=== PATIENT | female | born 1980 | race Caucasian/White ===

== ENCOUNTER 2019-12-31 10:02 | Emergency (ER) | payer MEDICARE ==
[~2019-12-31] VITALS: Ht 162.6 cm; Wt 61.2 kg
[2019-12-31 10:40] LABS: BASOPHILS % 0.5 % (0.0-1.0); EOSINOPHILS # (AUTO) 0.1 (0.0-0.4); EOSINOPHILS % 1.2 % (0.0-6.0); HEMATOCRIT 34.6 % (34.2-44.1); HEMOGLOBIN 10.8 g/dL (12.0-16.0); LYMPHOCYTES # (AUTO) 1.9 (1.0-3.2); LYMPHOCYTES % 31.3 % (18.0-39.1); MEAN CORPUSCULAR HEMOGLOBIN 24.7 pg (28-32); MEAN CORPUSCULAR HGB CONC 31.2 g/dL (31-35); MEAN CORPUSCULAR VOLUME 79.2 fL (81-99); MONOCYTES # (AUTO) 0.7 (0.2-0.8); MONOCYTES % 11.1 % (4.4-11.3); NEUTROPHILS # (AUTO) 3.4 (2.1-6.9); NEUTROPHILS % 55.7 % (38.7-80.0); PLATELET COUNT 278 x10e3/uL (140-360); RED BLOOD COUNT 4.37 x10e6/uL (3.6-5.1); RED CELL DISTRIBUTION WIDTH 16.8 % (11.7-14.4)
--- NOTE | 2019-12-31 10:56 | Emergency Department Note ---
History of Present Illnes History of Present Illness Chief Complaint: Genitourinary History of Present Illness This is a 39 year old female had 1 bloody BM BRBPR, no melena and LAP, LLQ x 1 day. LMP early in the month. . Historian: Patient Arrival Mode: Car Onset (how long ago): day(s) (1) Location: lower GI Quality: ache Radiation: Reports non-radiation Severity: moderate Onset quality: gradual Duration (how long): day(s) (1) Timing of current episode: constant Progression: worsening Chronicity: new Context: Denies recent illness, Denies recent surgery, Denies recent immobilization Relieving factors: none Exacerbating factors: none Past Medical/Family History Physician Review I have reviewed the patient's past medical and family history. Any updates have been documented here. Past Medical History Recent Fever: No Clinical Suspicion of Infectio: No New/Unexplained Change in Ment: No Past Medical History: None Past Surgical History: None Other Any Pre-Existing Lines (PICC,: No Review of Systems Review of Systems Constitutional: Reports no symptoms EENTM: Reports no symptoms Cardiovascular: Reports no symptoms Respiratory: Reports no symptoms Gastrointestinal: Reports as per HPI Genitourinary: Reports no symptoms Musculoskeletal: Reports no symptoms Integumentary: Reports no symptoms Neurological: Reports no symptoms Psychological: Reports no symptoms Endocrine: Reports no symptoms Hematological/Lymphatic: Reports no symptoms Physical Exam Related Data Allergies: Uncoded Allergies: ANTS (Allergy, Unknown, 12/31/19) CALAMARI (Allergy, Unknown, 12/31/19) Triage Vital Signs Vital Signs Date Time Temp Pulse Resp B/P (MAP) Pulse Ox O2 Delivery O2 Flow Rate FiO2 12/31/19 10:20 98.0 70 18 126/75 100 Room Air Physical Exam CONSTITUTIONAL Constitutional: Present well-developed, Present well-nourished HENT HENT: Present normocephalic, Present atraumatic, Present oropharynx clear/moist, Present nose normal HENT L/R: Present left ext ear normal, Present right ext ear normal EYES Eyes: Reports PERRL, Reports conjunctivae normal NECK Neck: Present ROM normal PULMONARY Pulmonary: Present effort normal, Present breath sounds normal CARDIOVASCULAR Cardiovascular: Present regular rhythm, Present heart sounds normal, Present capillary refill normal, Present normal rate GASTROINTESTINAL Abdominal: Present soft, Present bowel sounds normal, Present tender (TTP LLQ, no peritoneal signs ) GENITOURINARY Genitourinary: Present exam deferred SKIN Skin: Present warm, Present dry MUSCULOSKELETAL Musculoskeletal: Present ROM normal NEUROLOGICAL Neurological: Present alert, Present oriented x 3, Present no gross motor or sensory deficits PSYCHOLOGICAL Psychological: Present mood/affect normal, Present judgement normal Results Laboratory Result Diagram: 12/31/19 1018 Laboratory Laboratory Tests Test 12/31/19 10:37 12/31/19 10:18 Urine Test Negative (NEGATIVE) White Blood Count 6.01 x10e3/uL (4.8-10.8) Red Blood Count 4.37 x10e6/uL (3.6-5.1) Hemoglobin 10.8 g/dL (12.0-16.0) Hematocrit 34.6 % (34.2-44.1) Mean Corpuscular Volume 79.2 fL (81-99) Mean Corpuscular Hemoglobin 24.7 pg (28-32) Mean Corpuscular Hemoglobin Concent 31.2 g/dL (31-35) Red Cell Distribution Width 16.8 % (11.7-14.4) Platelet Count 278 x10e3/uL (140-360) Neutrophils (%) (Auto) 55.7 % (38.7-80.0) Lymphocytes (%) (Auto) 31.3 % (18.0-39.1) Monocytes (%) (Auto) 11.1 % (4.4-11.3) Eosinophils (%) (Auto) 1.2 % (0.0-6.0) Basophils (%) (Auto) 0.5 % (0.0-1.0) Neutrophils # (Auto) 3.4 (2.1-6.9) Lymphocytes # (Auto) 1.9 (1.0-3.2) Monocytes # (Auto) 0.7 (0.2-0.8) Eosinophils # (Auto) 0.1 (0.0-0.4) Basophils # (Auto) 0.0 (0.0-0.1) Absolute Immature Granulocyte (auto 0.01 x10e3/uL (0-0.1) Assessment & Plan Medical Decision Making MDM Patient's a 39-year-old female that had 1 bloody bowel movement. Patient on exam with left lower quadrant pain, we'll CT to rule out diverticulitis. Patient likely with hemorrhoidal bleed, will do a rectal exam. We will also check H&H. Reassessment Reassessment Patient in no acute distress, rectal exam chaperoned by needed when necessary shows brown stool, positive external hemorrhoid. It Is benign, well advised to use fiber, MiraLAX, follow up with GI. CT did not show colitis, bleed likely hemorrhoidal. Follow up with GI. Utilizing all results explained. Nodule to small to characterize on her liver, understands to follow up PCP. Assessment & Plan Final Impression: (1) BRBPR (bright red blood per rectum) Depart Disposition: HOME, SELF-CARE Last Vital Signs Date Time Temp Pulse Resp B/P (MAP) Pulse Ox O2 Delivery O2 Flow Rate FiO2 12/31/19 10:30 20 135/86 98 Room Air 12/31/19 10:20 98.0 70 MARJ PEREZ MD Dec 31, 2019 10:56
[2019-12-31 11:08] LABS: ALANINE AMINOTRANSFERASE 10 IU/L (0-55); ALBUMIN 4.2 g/dL (3.5-5.0); ALBUMIN/GLOBULIN RATIO 1.6 (0.8-2.0); ALKALINE PHOSPHATASE 38 IU/L (40-150); ANION GAP 15.9 mmol/L (8-16); BLOOD UREA NITROGEN 18 mg/dL (7-26); BUN/CREATININE RATIO 23 (6-25); CALCIUM 9.1 mg/dL (8.4-10.2); CARBON DIOXIDE 22 mmol/L (22-29); CHLORIDE 104 mmol/L (98-107); CREATININE, SERUM 0.79 mg/dL (0.57-1.11); EST GLOMERULAR FILTRATION RATE > 60 ML/MIN (60-); GLUCOSE 107 mg/dL (74-118); POTASSIUM 3.9 mmol/L (3.5-5.1); SODIUM 138 mmol/L (136-145)
[2019-12-31] MEDS ORDERED: IOPAMIDOL 370 MG/ML 200 ML INFUS..BTL INJ ONE (11:37)
[2019-12-31] MEDS ORDERED: SODIUM CHLORIDE 0.9% 50ML 50 ML ONE (11:37)
--- NOTE | 2019-12-31 11:47 | NUR ---
CT made aware that patient is ready
--- NOTE | 2019-12-31 13:07 | Diagnostic Imaging Report ---
CT of the abdomen and pelvis, with contrast, 12/31/2019. History: Left lower quadrant pain. Comparison: None available. Technique: Multidetector CT scanning of the abdomen and pelvis was performed from the level of the lung bases to the inferior pubic rami after intravenous administration of contrast. Coronal and sagittal multiplanar reformations were obtained. RADIATION DOSE: Total DLP: 277 mGy*cm Dose modulation, iterative reconstruction, and/or weight based adjustment of the mA/kV was utilized to reduce the radiation dose to as low as reasonably achievable. Discussion: LUNG BASES: No visualized abnormalities. ABDOMEN: A 5 mm hypodensity is noted within the right lobe of the liver. The liver measures 17.4 cm in length. The gallbladder, biliary tree, spleen, pancreas, adrenal glands, and kidneys are otherwise normal. The hepatic vein, portal vein, and splenic vein are patent. The abdominal aorta is within normal limits for size. Evaluation of bowel is limited without oral contrast. There is no bowel dilatation. There is no evidence of adenopathy or free fluid. PELVIS: The bladder, uterus, and adnexa are normal in appearance. There is no evidence of free fluid or adenopathy. BONES AND SOFT TISSUES: Degenerative changes are present throughout the lumbar spine without evidence of lytic or sclerotic lesion. IMPRESSION: Mild hepatomegaly with a subcentimeter right hepatic hypodensity which is too small to characterize. Otherwise unremarkable CT of the abdomen and pelvis. Signed by: Vic Clark on 12/31/2019 1:04 PM
[2019-12-31 14:02] VITALS: BP 125/72
--- OUTSIDE RECORDS SUMMARY | 2020-01-06 18:00 | XMS REPORT | Clinical Summary ---
Author Author [facility] ict Organization [facility] ict Address Unknown Phone Unavailable Care Team Providers Care Commercial Real Estate Attorney Name Role Phone PCP Unavailable Allergies Comments Active Allergy Reactions Severity Noted Date Psychosis Gabapentin 12/31/2013 Medications End Date Status Medication Sig Dispensed Refills Start Date Active sertraline (ZOLOFT) 100 Take 100 mg 0 mg tablet by mouth daily. Active amitriptyline (ELAVIL) 25 Take 1 tablet 30 tablet 2 mg tabletIndications: by mouth at 4 Neck pain, chronic bedtime nightly. Active ibuprofen (MOTRIN) 800 mg Take 1 tablet 90 tablet 2 tabletIndications: Neck by mouth 4 pain, chronic every 8 hours as needed for Pain. Active nicotine polacrilex Place 1 Each 30 Each 2 01/14 (NICORETTE) 2 mg inside cheek 4 GumIndications: Bipolar 1 every 2 disorder hours. Active ARIPiprazole (ABILIFY) 10 Take 0.5 60 tablet 1 mg tabletIndications: tablet po q 4 Posttraumatic stress am and q hs disorder for 1 week, increase to 0.5 tablet po q am and 1 tablet po q hs starting 2 week and thereafter. Active hydrOXYzine (ATARAX) 50 Take 1 tablet 90 tablet 2 mg tabletIndications: po tid. 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 conditions classified elsewhere Active Problems Problem Noted Date Rectal bleeding Immunizations Name Administration Dates Next Due PPV 23 Pneumococcal 06/21/2014 Polysaccaride Family History Medical History Relation Name Comments Seizures Brother Heart Father Arthritis Mother Hypertension Mother Stroke Paternal Grandmother Relation Name Status Comments Brother Alive 3 Brother Father Maternal Grandfather Maternal Grandmother Alive Mother Alive Paternal Grandfather Paternal Grandmother Sister Alive Social History Date Tobacco Use Types Packs/Day Years Used Current Every Day Smoker Cigarettes Smokeless Tobacco: Never Used Tobacco Cessation: Ready to Quit: Yes; C ounseling Given: Yes Drinks/Week oz/Week Comments Alcohol Use No Sex Assigned at Date Recorded Not on file Industry Job Start Date Occupation Not on file Not on file Not on file Travel End Travel History Travel Start No recent travel history available. Last Filed Vital Signs Not on file Plan of Treatment Health Maintenance Due Date Last Done Comments Pap Cervical Cancer Scrn 2011 HPV Cervical Cancer Scrn 06/22/2019 06/21/2014, 06/21/2014 Results Not on fileafter 12/30/2018 Insurance Type Payer Benefit Subscriber ID Effective Phone Address Plan / Dates Group [facility] SELF-PAY SELF-PAY xxxxxxxxx 2018- [phone] [id number] [place] [address]
--- OUTSIDE RECORDS SUMMARY | 2020-01-06 18:00 | XMS REPORT | Clinical Summary ---
Author Author [facility] Organization [facility] Address Unknown Phone Unavailable Care Team Providers Care Credit Risk Review Officer Name Role Phone Asked, No Pcp PCP Unavailable Allergies No Known Active Allergies Medications End Date Status Medication Sig Dispensed Refills Start Date Active meloxicam (MOBIC) 15 mg Take 1 tablet 10 tablet 0 tablet (15 mg total) 8 by mouth daily as needed for mild pain for up to 10 doses. Active Problems Not on file Surgical History Surgery Date Site/Laterality Comments CERVICAL BIOPSY Medical History Medical History Date Comments Anemia Mini stroke (HCC) age 28 Social History Date Tobacco Use Types Packs/Day Years Used Current Every Day Smoker Cigarettes 1 Smokeless Tobacco: Never Used Tobacco Cessation: Ready to Quit: No; Co unseling Given: Yes Drinks/Week oz/Week Comments Alcohol Use not at the moment Yes Sex Assigned at Date Recorded Not on file Last Filed Vital Signs Not on file Plan of Treatment Health Maintenance Due Date Last Done Comments CERVICAL CANCER SCREENING 2002 INFLUENZA VACCINE 10/02/2019 Results Not on fileafter 12/30/2018 Insurance Type Payer Benefit Subscriber ID Effective Phone Address Plan / Dates Group Medicaid MEDICAID MEDICAID [id number] 2018-Carlos Alberto jensen Advance Directives For more information, please contact: [phone] Patient Tripoler Explanation Type Date Recorded Advance Directives, 09/17/2017 11:50 AM Living Will and Medical Power of Buffet Runner
--- OUTSIDE RECORDS SUMMARY | 2020-01-06 18:01 | XMS REPORT | Continuity of Care Document ---
Author Author [facility] t Organization [facility] Address [address] [place] [address] Phone Unavailable Care Team Providers Care Display Card Writer Name Role Phone Asked, Pcp No PCP Unavailable Gladis PEREZ Attphys Unavailable Jazmin Livingston CNM Attphys Radiology Attphys Unavailable Doctor Unassigned, Name No Attphys Unavailable Payers Payer Name Policy Type Policy Number Effective Date Expiration Date S ource Problems Condition Name Condition Details Condition Category Status Onset Date Resolution Date Last Treatment Date Treating Clinician Comments Source Disease Active [facility] Rectal bleeding Rectal bleeding Disease Active [facility] Allergies, Adverse Reactions, Alerts Allergy Name Allergy Type Status Severity Reaction(s) Onset Date Inacti ve Date Treating Clinician Comments Source No Known Allergies DA Active U 2018-09-02 00:00:00 [facility] miconazole nitrate DA Active [place] 2018-07-01 00:00:00 [facility] latex DA Active [place] 2018-07-01 00:00:00 [facility] Gabapentin Propensity to adverse reactions to drug Active 2013-12-31 00:00:00 Psychosis [facility] miconazole nitrate DA Active MO 2011-07-04 00:00:00 [facility] latex DA Active MO 2011-07-04 00:00:00 [facility] Family History Family Member Diagnosis Comments Start Date Stop Date Source Natural brother Seizures [facility] Natural father Heart [facility] Natural mother Arthritis [facility] Natural mother Hypertension [facility] Paternal grandmother Stroke [facility] Social History Social Habit Start Date Stop Date Quantity Comments Source History of tobacco use Cigarette Smoker [facility] Sex Assigned At [facility] Cigarettes smoked current (pack per day) - Reported 00:00:00 2018-05-20 00:00:00 Pablo Benson Tobacco use and exposure 2018-05-20 00:00:00 2018-05-20 00:00:00 Katherine blanchard used [facility] Alcohol Comment 2018-05-20 00:00:00 2018-05-20 00:00:00 not at the mo ment [facility] Alcohol intake 2018-04-21 00:00:00 2018-04-21 00:00:00 Current non-drinker of alcohol (finding) [facility] Smoking Status Start Date Stop Date Source Current every day smoker 2018-04-21 00:00:00 [facility] Medications Ordered Medication Name Filled Medication Name Start Date Stop Da te Current Medication? Ordering Clinician Indication Dosage Frequency Signature (SIG) Comments Components Source meloxicam (MOBIC) 15 mg tablet 2017-10-28 00:00:00 Yes 15mg Q24H Take 1 tablet (15 mg total) by mouth daily as needed for mild pain for up to [address] [facility] sertral[facility] (ZOLOFT) 100 mg tablet 2014 15:46:07 Yes 100mg QD Take 100 mg by mouth daily. [facility] hydrOXYzine (ATARAX) 50 mg tablet 2014 00:00:00 Yes Mood disorder in conditions classified elsewhere Take 1 tablet po tid. [facility] ARIPiprazole (ABILIFY) 10 mg tablet 2014 00:00:00 Yes Mood disorder in conditions classified elsewhere 15mg QD Take 1.5 tablets by italo th daily. [facility] ARIPiprazole (ABILIFY) 10 mg tablet 2014-02-10 00:00:00 Yes Posttraumatic stress disorder Take 0.5 tablet po q am and q hs for 1 week, increase to 0.5 tablet po q am and 1 tablet po q hs starting 2 week and thereafter. [facility] nicotine polacrilex (NICORETTE) 2 mg Gum 2014-01-14 00:00:00 Yes Bipolar [address] 1 Each inside cheek every 2 hours. [facility] amitriptyline (ELAVIL) 25 mg tablet 2013-12-31 00:00:00 Yes Neck pain, chronic 25mg Take 1 tablet by mouth at bedtime nightly. [facility] ibuprofen (MOTRIN) 800 mg tablet 2013-12-31 00:00:00 Yes Neck pain, chronic 800mg Take 1 tablet by mouth every 8 hours as needed for Pain. [facility] Immunizations Ordered Immunization Name Filled Immunization Name Date Status Comments Source PPV 23 Pneumococcal Polysaccaride 2014-06-21 00:00:00 Comp leted [facility] Procedures This patient has no known procedures. Plan of Care Planned Activity Planned Date Details Comments Source Future Scheduled Test 2019-10-02 00:00:00 INFLUENZA VACCINE [code = INFLUENZA VACCINE] [facility] Scheduled Test 2019-06-22 00:00:00 Screening for clara gnant neoplasm of cervix (procedure) [code = 882263455] [facility] Scheduled Test 2011 00:00:00 Screening for clara gnant neoplasm of cervix (procedure) [code = 393017916] [facility] Scheduled Test 2002 00:00:00 Screening for clara gnant neoplasm of cervix (procedure) [code = 260945459] Otis Joseis Encounters Start Date/Time End Date/Time Encounter Type Admission Type Attendi [facility] Care Department Encounter ID Source 2019-12-22 00:00:00 2019-12-22 00:00:00 Telephone Jazmin Livingston [facility] [place] [id number] 2019-12-20 08:38:40 2019-12-20 23:59:00 Hospital Encounter Radiology [facility] [id number] 2019-12-20 08:37:37 2019-12-20 08:37:37 Hospital Encounter Radiology [facility] [place] [id number] 2019-11-24 09:59:40 2019-11-24 11:02:52 Office Visit Miki AnaisJazmin [facility] [id number] 2019-11-24 00:00:00 2019-11-24 00:00:00 Orders Only D danior Unassigned, [place] [facility] [id number] 2018-04-21 08:34:24 2018-04-21 08:34:24 Emergency [facility] [id number] [facility] 2018-04-21 02:59:22 2018-04-21 02:59:22 Emergency [facility] [id number] [facility] Results Test Description Test Time Test Comments Results Result Comments Source CT ABDOMEN/PELVIS W 2019-12-31 12:57:00 [facility] : 1980 Sex: F [place] [id number] Patient Name: ANNA MITCHELL MR #: [id number] : 1980 Age/Sex: 39/F Req #: [id number] Adm Physician: Ordered by: MARJ PEREZ MD Report #: [id number] Location: Room/Bed: Procedure: [id number] CT/CT ABDOMEN/PELVIS W Exam Date: 12/31/19 Exam Time: 1220 REPORT STATUS: Signed CT of the abdomen and pelvis, with contrast, 12/31/2019. History: Left lower quadrant pain. Comparison: None available. Technique: Multidetector CT scanning of the abdomen and pelvis was performed from the level of the lung bases to the inferior pubic rami after intravenous administration of contrast. Coronal and sagittal multiplanar reformations were obtained. RADIATION DOSE: Total DLP: 277 mGy*cm Dose modulation, iterative reconstruction, and/or weight based adjustment of the mA/kV was utilized to reduce the radiation dose to as low as reasonably achievable. Discussion: LUNG BASES: No visualized abnormalities. ABDOMEN: A 5 mm hypodensity is noted within the right lobe of the liver. The liver measures 17.4 cm in length. The gallbladder, biliary tree, spleen, pancreas, adrenal glands, and kidneys are otherwise normal. The hepatic vein, portal vein, and splenic vein are patent. The abdominal aorta is within normal limits for size. Evaluation of bowel is limited without oral contrast. There is no bowel dilatation. There is no evidence of adenopathy or free fluid. PELVIS: The bladder, uterus, and adnexa are normal in appearance. There is no evidence of free fluid or adenopathy. BONES AND SOFT TISSUES: Degenerative changes are present throughout the lumbar spine without evidence of lytic or sclerotic lesion. IMPRESSION: Mild hepatomegaly with a subcentimeter right hepatic hypodensity which is too small to characterize. Otherwise unremarkable CT of the abdomen and pelvis. Signed by: Vic Clark on 12/31/2019 1:04 PM Dictated By: VIC CLARK MD [id number] Transcribed By: JAXSON on 12/31/19 0322 COPY TO: MARJ PEREZ MD - XR HIP W/PEL UNI 2+V LT 2019-12-31 10:10:00 [facility] 1980 Sex: F FAX: Aurora Crook MD [phone] [place]: St: REG -- Name: ANNA MITCHELL [facility] : 1980 Age/S: 39/F [address] [place] [address] Unit #: [id number] Loc: [place] [address] Phys: Aurora Cha MD Acct: [id number] Dis Date: Status: REG CLI PHONE #: [phone] Exam Date: 12/31/2019 0900 FAX #: [phone] Reason: L HIP PAIN EXAMS: CPT CODE: [id number] XR HIP W/PEL UNI 2+[place] [address] Left hip 2 views: HISTORY: Left hip pain. FINDINGS: Normal bony alignment without fracture, dislocation or lytic lesion. Joint spaces maintained. IMPRESSION: Negative SL: [id number] at 1010 Reported and signed by: Vin Valdez M.D. CC: Aurora Cha Technologist: RT Ariel(R) Trnscrd Date/Time/By: 12/31/2019 (1010) : By: RemingtonETG Orig Print D/T: S: 12/31/2019 (1014) PAGE 1 Signed Report - [facility] UNI/LTD 2018-07-01 14:14:00 Name: Earnestine SULLIVANANNA [facility] : 1980 Age/S: 38 / F [address] [place] [address] Unit #: [id number] Loc: [place] [address] Phys: Gladys Tang MD Acct: [id number] Dis Date: Status: REG ER PHONE #: [phone] Exam Date: 07/01/2018 1354 FAX #: [phone] Reason: acute LUE pain EXAMS: CPT CODE: [id number] [facility] UNI/LTD 75499 Left upper extremity Doppler US performed on July 01, 2018 1320 hours. CLINICAL HISTORY: Arm pain. COMPARISON: None. DISCUSSION: Real-time caceres scale sonography, color Doppler and spectral waveform analysis was performed of the deep venous structures of the left upper extremity, including the jugular vein, subclavian vein, axillary vein, brachial vein, cephalic vein, basilic vein, radial vein and ulnar vein.. There is normal flow and compressibility through out, with normal response to respiration and augmentation. IMPRESSION: 1. No sonographic evidence of deep venous thrombosis left upper extremity. at 1414 Reported and signed by: Deborah Ivy M.D. CC: Gladys Tang MD Technologist: Patsy [place] RDMS(OB)(AB) Trnscb Date/Time: 07/01/2018 (1414) [email or web address] Orig Print D/T: S: 07/01/2018 (0517) Probe: PAGE 1 Signed Report - US PREG 1ST TRIMTR 2018-07-01 14:05:00 Name: ANNA MITCHELL [facility] : 1980 Age/S: 38 / F [address] [place] [address] Unit #: [id number] Loc: [place] [address] Phys: Gladys Tang MD Acct: [id number] Dis Date: Status: REG ER PHONE #: [phone] Exam Date: 07/01/2018 1354 FAX #: [phone] Reason: acute pelvic pain EXAMS: CPT CODE: [id number] US PREG 1ST TRIMTR 99573 PROCEDURE: FIRST TRIMESTER ULTRASOUND INDICATION: Acute pelvic pain. LMP 03/31/2018. EGA 13 weeks 1 day. COMPARISON: None relevant TECHNIQUE: Grayscale, color and Doppler transabdominal imaging of the pelvis was performed with standard technique. FINDINGS: UTERUS: The uterus measures approximately 12.9 x 9.6 x 11.3 cm. Single living intrauterine . Garnet-rump length average 8.3 cm. heart rate 155. No abnormal fluid collection. The cervix is grossly closed. RIGHT OVARY: 2.5 x 1.6 x 2.3 cm. Normal morphology. Internal flow documented. LEFT OVARY: 3.7 x 1.8 x 3.2 cm. Normal morphology. Internal flow documented. BLADDER: Contracted, otherwise unremarkable. Comments: No adnexal masses. No free intraperitoneal fluid. IMPRESSION: 1. Single living intrauterine at an estimated gestational age of 14 weeks 1 day by crown-rump length, within measurement error of EGA by dates. 2. No acute abnormality demonstrated to account for the patient's symptoms. SL: [id number] at 1405 Reported and signed by: Greg Anna M.D. CC: Gladys Tang MD Technologist: Patsy [place] RDMS(OB)(AB) Trnscb Date/Time: 07/01/2018 (1405) Analy Orig Print D/T: S: 07/01/2018 (9442) Probe: PAGE 1 Signed Report - [facility] UNI/LTD 2018-07-01 13:58:00 Name: ANNA AQUINO [facility] : 1980 Age/S: 38 / F [address] [place] [address] Bl Unit #: [id number] Loc: [place] [address] Phys: Gladys Tang MD Acct: [id number] Dis Date: Status: REG ER PHONE #: [phone] Exam Date: 07/01/2018 1354 FAX #: [phone] Reason: acute LLE pain EXAMS: CPT CODE: [id number] [facility] UNI/LTD 54893 PROCEDURE: LEFT UNILATERAL LOWER EXTREMITY VENOUS ULTRASOUND INDICATION: Acute left leg pain. COMPARISON: None. TECHNIQUE: Sonographic evaluation of the left lower extremity veins was performed using high resolution B-mode, pulse and color Doppler imaging. FINDINGS: The common femoral, femoral, popliteal and visualized calf veins are patent. Normal venous waveforms. The saphenofemoral junction is unremarkable. IMPRESSION: 1. No deep venous thrombosis in the left leg. SL:01 at 1358 Reported and signed by: Ayo Floyd M.D. CC: Gladys Tang MD Technologist: Patsy [place] RDMS(OB)(AB) Trnscb Date/Time: 07/01/2018 (9395) t.AJJ Orig Print D/T: S: 07/01/2018 (1402) Probe: PAGE 1 Signed Report CBC W/AUTO DIFF 2018-07-01 13:30:00 Test Item WHITE BLOOD CELL (test code = WBC) 7.35 x10 3/uL 4.5-11.0 N RED BLOOD CELL (test code = RBC) 3.83 x10 6/uL 3.54-5.02 N HEMOGLOBIN (test code = HGB) 8.6 g/dL 11.0-15.0 L HEMATOCRIT (test code = HCT) 28.3 % 33.0-45.0 L MEAN CELL VOLUME (test code = MCV) 73.9 fL 81.0-99.0 L MEAN CELL HGB (test code = MCH) 22.5 pg 27.0-33.0 L MEAN CELL HGB CONCETRATION (test code = MCHC) 30.4 g/dL 33.0-37. 0 L RED CELL DISTRIBUTION WIDTH CV (test code = RDW) 20.7 % 11.5- 14.5 H RED CELL DISTRIBUTION WIDTH SD (test code = RDW-SD) 54.1 fL 37 .0-54.0 H PLATELET COUNT (test code = PLT) 273 x10 3/uL 150-400 N MEAN PLATELET VOLUME (test code = MPV) 10.2 fL 7.0-9.0 H NEUTROPHIL % (test code = NT%) 70.2 % 56.0-77.0 N IMMATURE GRANULOCYTE % (test code = IG%) 0.3 % 0.0-2.0 N LYMPHOCYTE % (test code = LY%) 19.3 % 14.0-32.0 N MONOCYTE % (test code = MO%) 8.6 % 4.8-9.0 N EOSINOPHIL % (test code = EO%) 1.2 % 0.3-3.7 N BASOPHIL % (test code = BA%) 0.4 % 0.0-2.0 N NUCLEATED RBC % (test code = NRBC%) 0.0 % 0-0 N NEUTROPHIL # (test code = NT#) 5.16 x10 3/uL 2.0-7.6 N IMMATURE GRANULOCYTE # (test code = IG#) 0.02 x10 3/uL 0.00-0.03 N LYMPHOCYTE # (test code = LY#) 1.42 x10 3/uL 1.0-3.8 N MONOCYTE # (test code = MO#) 0.63 x10 3/uL 0.1-0.8 N EOSINOPHIL # (test code = EO#) 0.09 x10 3/uL 0.0-0.2 N BASOPHIL # (test code = BA#) 0.03 x10 3/uL 0.0-0.2 N NUCLEATED RBC # (test code = NRBC#) 0.00 x10 3/uL 0.0-0.1 N MANUAL DIFF REQUIRED (test code = MDIFF) NO RBC [id number] 13:30:00* Test Item Value Reference Range Interpretation Comments POLYCHROMASIA (test code = POLC) SLIGHT POIKILOCYTOSIS (test code = POIK) 1+ ANISOCYTOSIS (test code = ANISO) 2+ MICROCYTOSIS (test code = MICR) 1+ ELLIPTOCYTES (test code = ELL) FEW SCHISTOCYTES (test code = BHASKAR) RARE HCG [id number] 12:49:00* Test Item Value Reference Range Interpretation Comments HCG SERUM (test code = HCG) 11818 0 - 6 NOT > 6 SUGGESTIVE OF EARLY RISES TWO FOLD EVERY 2 DAYS; SUGGEST RE CONFIRMING AFTER 2 DAYS. 150,000-200,[address] TRIMESTER 10,000 - 50,000 2ND & 3RD TRIMESTERResults in leonela-International Units/mL Is patient ? YHOW MANY WEEKS? 3 WEEKSCBC W/AUTO [id number] 12:28:00 * Test Item Value Reference Range Interpretation Comments WHITE BLOOD CELL (test code = WBC) 7.35 x10 3/uL 4.5-11.0 N RED BLOOD CELL (test code = RBC) 3.83 x10 6/uL 3.54-5.02 N HEMOGLOBIN (test code = HGB) 8.6 g/dL 11.0-15.0 L HEMATOCRIT (test code = HCT) 28.3 % 33.0-45.0 L MEAN CELL VOLUME (test code = MCV) 73.9 fL 81.0-99.0 L MEAN CELL HGB (test code = MCH) 22.5 pg 27.0-33.0 L MEAN CELL HGB CONCETRATION (test code = MCHC) 30.4 g/dL 33.0-37. 0 L RED CELL DISTRIBUTION WIDTH CV (test code = RDW) 20.7 % 11.5- 14.5 H RED CELL DISTRIBUTION WIDTH SD (test code = RDW-SD) 54.1 fL 37 .0-54.0 H PLATELET COUNT (test code = PLT) 273 x10 3/uL 150-400 N MEAN PLATELET VOLUME (test code = MPV) 10.2 fL 7.0-9.0 H NEUTROPHIL % (test code = NT%) 70.2 % 56.0-77.0 N IMMATURE GRANULOCYTE % (test code = IG%) 0.3 % 0.0-2.0 N LYMPHOCYTE % (test code = LY%) 19.3 % 14.0-32.0 N MONOCYTE % (test code = MO%) 8.6 % 4.8-9.0 N EOSINOPHIL % (test code = EO%) 1.2 % 0.3-3.7 N BASOPHIL % (test code = BA%) 0.4 % 0.0-2.0 N NUCLEATED RBC % (test code = NRBC%) 0.0 % 0-0 N NEUTROPHIL # (test code = NT#) 5.16 x10 3/uL 2.0-7.6 N IMMATURE GRANULOCYTE # (test code = IG#) 0.02 x10 3/uL 0.00-0.03 N LYMPHOCYTE # (test code = LY#) 1.42 x10 3/uL 1.0-3.8 N MONOCYTE # (test code = MO#) 0.63 x10 3/uL 0.1-0.8 N EOSINOPHIL # (test code = EO#) 0.09 x10 3/uL 0.0-0.2 N BASOPHIL # (test code = BA#) 0.03 x10 3/uL 0.0-0.2 N NUCLEATED RBC # (test code = NRBC#) 0.00 x10 3/uL 0.0-0.1 N MANUAL DIFF REQUIRED (test code = MDIFF) NO RBC [id number] 12:28:00* Test Item Value Reference Range Interpretation Comments ANISOCYTOSIS (test code = ANISO) CBC W/AUTO [id number] 12:28:00* Test Item Value Reference Range Interpretation Comments WHITE BLOOD CELL (test code = WBC) 7.35 x10 3/uL 4.5-11.0 N RED BLOOD CELL (test code = RBC) 3.83 x10 6/uL 3.54-5.02 N HEMOGLOBIN (test code = HGB) 8.6 g/dL 11.0-15.0 L HEMATOCRIT (test code = HCT) 28.3 % 33.0-45.0 L MEAN CELL VOLUME (test code = MCV) 73.9 fL 81.0-99.0 L MEAN CELL HGB (test code = MCH) 22.5 pg 27.0-33.0 L MEAN CELL HGB CONCETRATION (test code = MCHC) 30.4 g/dL 33.0-37. 0 L RED CELL DISTRIBUTION WIDTH CV (test code = RDW) 20.7 % 11.5- 14.5 H RED CELL DISTRIBUTION WIDTH SD (test code = RDW-SD) 54.1 fL 37 .0-54.0 H PLATELET COUNT (test code = PLT) 273 x10 3/uL 150-400 N MEAN PLATELET VOLUME (test code = MPV) 10.2 fL 7.0-9.0 H NEUTROPHIL % (test code = NT%) 70.2 % 56.0-77.0 N IMMATURE GRANULOCYTE % (test code = IG%) 0.3 % 0.0-2.0 N LYMPHOCYTE % (test code = LY%) 19.3 % 14.0-32.0 N MONOCYTE % (test code = MO%) 8.6 % 4.8-9.0 N EOSINOPHIL % (test code = EO%) 1.2 % 0.3-3.7 N BASOPHIL % (test code = BA%) 0.4 % 0.0-2.0 N NUCLEATED RBC % (test code = NRBC%) 0.0 % 0-0 N NEUTROPHIL # (test code = NT#) 5.16 x10 3/uL 2.0-7.6 N IMMATURE GRANULOCYTE # (test code = IG#) 0.02 x10 3/uL 0.00-0.03 N LYMPHOCYTE # (test code = LY#) 1.42 x10 3/uL 1.0-3.8 N MONOCYTE # (test code = MO#) 0.63 x10 3/uL 0.1-0.8 N EOSINOPHIL # (test code = EO#) 0.09 x10 3/uL 0.0-0.2 N BASOPHIL # (test code = BA#) 0.03 x10 3/uL 0.0-0.2 N NUCLEATED RBC # (test code = NRBC#) 0.00 x10 3/uL 0.0-0.1 N MANUAL DIFF REQUIRED (test code = MDIFF) NO RBC [id number] 12:28:00* Test Item Value Reference Range Interpretation Comments ANISOCYTOSIS (test code = ANISO)
== END 2019-12-31 13:55 | disposition home or self-care (01) ==
LOC: ER 12:15
DX: R10.32 Left lower quadrant pain (principal); K62.5 Hemorrhage of anus and rectum
CPT/HCPCS: 36415; 74177; 80053; 81025; 85025; 99284; Q9967

== ENCOUNTER 2020-04-30 16:53 | Emergency (ER) | payer SELFPAY ==
[~2020-04-30] VITALS: Ht 162.6 cm; Wt 61.2 kg
[2020-04-30 17:38] LABS: BASOPHILS # (AUTO) 0.1 (0.0-0.1); BASOPHILS % 0.8 % (0.0-1.0); EOSINOPHILS # (AUTO) 0.1 (0.0-0.4); EOSINOPHILS % 1.4 % (0.0-6.0); HEMOGLOBIN 12.6 g/dL (12.0-16.0); LYMPHOCYTES # (AUTO) 2.7 (1.0-3.2); LYMPHOCYTES % 34.7 % (18.0-39.1); MEAN CORPUSCULAR HEMOGLOBIN 29.5 pg (28-32); MEAN CORPUSCULAR HGB CONC 33.2 g/dL (31-35); MONOCYTES # (AUTO) 0.7 (0.2-0.8); NEUTROPHILS # (AUTO) 4.2 (2.1-6.9); NEUTROPHILS % 53.8 % (38.7-80.0); PLATELET COUNT 223 x10e3/uL (140-360); RED BLOOD COUNT 4.27 x10e6/uL (3.6-5.1); RED CELL DISTRIBUTION WIDTH 16.1 % (11.7-14.4)
[2020-04-30 17:55] LABS: ALANINE AMINOTRANSFERASE 9 IU/L (0-55); ALBUMIN/GLOBULIN RATIO 1.5 (0.8-2.0); ALKALINE PHOSPHATASE 35 IU/L (40-150); ANION GAP 15.8 mmol/L (8-16); BLOOD UREA NITROGEN 14 mg/dL (7-26); BUN/CREATININE RATIO 19 (6-25); CARBON DIOXIDE 20 mmol/L (22-29); CHLORIDE 108 mmol/L (98-107); CREATINE KINASE 82 IU/L (29-168); CREATININE, SERUM 0.72 mg/dL (0.57-1.11); EST GLOMERULAR FILTRATION RATE > 60 ML/MIN (60-); GLUCOSE 104 mg/dL (74-118); POTASSIUM 3.8 mmol/L (3.5-5.1); SODIUM 140 mmol/L (136-145)
[2020-04-30 18:00] LABS: CLARITY,URINE CLEAR (CLEAR); COLOR,URINE YELLOW (YELLOW); KETONES,URINE NEGATIVE (NEGATIVE); LEUKOCYTE ESTERASE ,URINE NEGATIVE (NEGATIVE); NITRITE,URINE NEGATIVE (NEGATIVE); PROTEIN,URINE DIPSTICK NEGATIVE (NEGATIVE)
[2020-04-30 18:01] LABS: PHENCYCLIDINE SCREEN,URINE NEGATIVE (NEGATIVE)
[2020-04-30 18:02] LABS: AMPHETAMINES SCREEN,URINE POSITIVE (NEGATIVE); BENZODIAZEPINES SCREEN,URINE NEGATIVE (NEGATIVE); URINE UROBILINOGEN 0.2 mg/dL (0.2 - 1)
[2020-04-30] MEDS ORDERED: KETOROLAC TROMETHAMINE 30 MG/ML VIAL IV STA (18:10)
[2020-04-30 18:18] LABS: BACTERIA,URINE FEW /HPF; EPITHELIAL CELLS,URINE MODERATE /LPF; RBC,URINE 0-5 /HPF (0-5); WBC,URINE (MAN) 0-5 /HPF (0-5)
[2020-04-30] MEDS ORDERED: KETOROLAC TROMETHAMINE 30 MG/ML VIAL ONE (18:24)
== END 2020-04-30 18:21 | disposition home or self-care (01) ==
LOC: ER 16:58
DX: R07.89 Other chest pain (principal); F17.210 Nicotine dependence, cigarettes, uncomplicated
CPT/HCPCS: 36415; 71045; 80053; 80307; 81001; 81025; 82550; 82553; 84484; 85025; 93005; 99284; J1885

== ENCOUNTER 2020-05-08 12:58 | Emergency (ER) | payer OTHER ==
[~2020-05-08] VITALS: Ht 165.1 cm; Wt 65.8 kg
[2020-05-08] MEDS ORDERED: DIAZEPAM 5 MG TAB PO ONE (14:15)
[2020-05-08] MEDS ORDERED: KETOROLAC TROMETHAMINE 60 MG/2 ML VIAL IM ONE (14:15)
[2020-05-08] MEDS ORDERED: HYDROCODONE/APAP 10MG-325MG TAB PO ONE (14:15)
[2020-05-08] MEDS ORDERED: METHYLPREDNISOLONE SOD SUCC 125 MG/2ML VIAL IM ONE (14:15)
[2020-05-08 14:24] LABS: CLARITY,URINE CLEAR (CLEAR); COLOR,URINE YELLOW (YELLOW); KETONES,URINE NEGATIVE (NEGATIVE); LEUKOCYTE ESTERASE ,URINE NEGATIVE (NEGATIVE); NITRITE,URINE NEGATIVE (NEGATIVE); PROTEIN,URINE DIPSTICK NEGATIVE (NEGATIVE); URINE UROBILINOGEN 0.2 mg/dL (0.2 - 1)
[2020-05-08 14:26] LABS: PREGNANCY TEST, URINE NEGATIVE (NEGATIVE)
[2020-05-08 14:37] LABS: BACTERIA,URINE FEW /HPF; EPITHELIAL CELLS,URINE MANY /LPF; RBC,URINE 0-5 /HPF (0-5); WBC,URINE (MAN) 0-5 /HPF (0-5)
[2020-05-08] MEDS ORDERED: VALIUM2 MG PO (16:17)
[2020-05-08] MEDS ORDERED: ROBAXIN-750750 MG PO (16:17)
[2020-05-08] MEDS ORDERED: NAPROXEN250 MG PO (16:17)
[2020-05-08] MEDS ORDERED: PREDNISONE20 MG PO (16:17)
== END 2020-05-08 16:17 | disposition home or self-care (01) ==
LOC: ER 14:00
DX: M53.3 Sacrococcygeal disorders, not elsewhere classified (principal); R53.1 Weakness
CPT/HCPCS: 72131; 72192; 81001; 81025; 99284; J1885; J2930